=== PATIENT | female | born 1955 | race Caucasian/White ===

== ENCOUNTER 2016-06-04 07:03 | Inpatient (IN) | payer BC ==
--- NOTE | 2016-05-29 19:36 | HP ---
HISTORY AND PHYSICAL: DATE OF ADMISSION: 06/04/16 ATTENDING PHYSICIAN: Tanesha Bonilla MD (dictated by ANAHI Light) CHIEF COMPLAINT: Preop for right total knee arthroplasty. HISTORY OF PRESENT ILLNESS: Ms. Peterson is a 60-year-old female with chronic 5/10 constant aching pain in her right knee. She states that the affected knee is now constantly swollen too. She is having a difficult time getting through the day now and feels that this is impacting her daily life. She is now wishing to proceed with elective total knee arthroplasty of the right. PAST MEDICAL HISTORY: 1. Derangement of posterior horn of the lateral meniscus. 2. Derangement of posterior horn of the medial meniscus. 3. Knee joint effusion. 4. Localized primary osteoarthritis. 5. Acid reflux. PAST SURGICAL HISTORY: None. MEDICATIONS: 1. Tylenol with Codeine 300/30 one to two tablets by mouth every 8 hours as needed. 2. Lysine 500 mg. 3. Caltrate 600 plus D. 4. Advil 200 mg as needed. 5. Gaviscon. 6. Atenolol 25 mg. ALLERGIES: PENICILLIN, DEMEROL, LEVOFLOXACIN, and HYDROCODONE. SOCIAL HISTORY: The patient is not a smoker. The patient drinks alcohol occasionally. The patient does not take any illicit drugs. REVIEW OF SYSTEMS: General: Denies fevers, chills, or night sweats. No known anesthesia problems. HEENT: Denies headache, lightheadedness, or syncopal episodes. Cardiothoracic: Negative for chest pain or edema. She admits to palpitations. Pulmonary: Negative for shortness of breath with exertion, chronic cough, COPD, or asthma. GI: Negative for nausea, vomiting, diarrhea, or constipation. Admits to GERD. : Negative for nocturia, urinary frequency , or urinary urgency. Musculoskeletal: Positive for pain in the right knee and she admits to fusion of the right knee. Negative for chronic or intermittent back pain or fractures. Neuro: Denies paresthesias, numbness, seizures, stroke, epilepsy, or depression. Integument: No abrasions, lesions, rashes, lumps, or open sores. Endocrine: Negative for diabetes or thyroid issues. Hematology: Negative for easy bruising, anemia, or excessive bleeding. PHYSICAL EXAMINATION GENERAL: The patient is alert, awake, and oriented and in no acute distress. HEENT: Normocephalic, atraumatic. Hearing and vision are grossly intact. PULMONARY: Lungs are clear to auscultation bilaterally with no wheezes, rales, or rhonchi. CARDIO: Regular rate and rhythm with S1, S2. No appreciable S3 or S4. No murmurs, rubs, or gallops. GI: Positive bowel sounds in all 4 quadrants with no tenderness to palpation of any of the 4 quadrants. MUSCULOSKELETAL: Right lower extremity: The patient's skin is intact. There is a moderate effusion of the knee, 5 to 120 degrees of flexion with some pain. The patient has no varus or valgus instability. The patient is neurovascularly intact distally with 5/5 strength for dorsiflexion and plantar flexion. The patient has 2+ dorsalis pedis and posterior tibialis pulses. IMPRESSION: Preop for right total knee arthroplasty. PLAN: The patient is to return 10 to 14 days postoperatively for suture removal and followup. A prescription for Tylenol No. 3 with Codeine has been sent to their pharmacy of record to be used for postoperative pain management. A prescription for Coumadin for postop DVT prophylaxis was e-prescribed and Colace was e- prescribed to use as needed for constipation. The patient has been found to be medically clear by Cardiology and her primary care. The risks and benefits of surgery were discussed with the patient today and consent was obtained. ANAHI LIGHT [id number]/[facility] #: [id number] EMILY
[~2016-06-04 07:03] MED LIST: Buffered Lidocaine 1% SYR 3ML* 3 ML/SYR SYRINGE INTRADERM ONE; Dexamethasone IV* 4 MG/ML 1 ML (4 MG) IV SLOW PU ONE; Famotidine IV* 10 MG/ML 2 ML (20 mg) IV ONE
[2016-06-04] MEDS ORDERED: Famotidine IV* 10 MG/ML 2 ML (20 mg) ONE (07:17)
[2016-06-04] MEDS ORDERED: ceFAZolin 2 GM PREMIX (*) 0 GM/0 ML BAG IVPB ONE (07:17)
[2016-06-04] MEDS ORDERED: Dexamethasone IV* 4 MG/ML 1 ML (4 MG) ONE (07:17)
[2016-06-04] MEDS ORDERED: Clindamycin 900 MG IVPREMIX(* 900 MG/50 ML SDV IV ONE (07:17)
[2016-06-04] MEDS ORDERED: Buffered Lidocaine 1% SYR 3ML* 3 ML/SYR SYRINGE ONE (07:20)
[2016-06-04] MEDS ORDERED: Bupivacaine 0.25% EPI 200,000* 30 ML SDV ONE (08:24)
[2016-06-04] MEDS ORDERED: Bupivacaine 0.5% W/EPI SDV* 30 ML VIAL ONE (08:26)
[2016-06-04] MEDS ORDERED: Midazolam* 1 MG/ML 2 ML VIAL (2 MG) ONE (08:57)
[2016-06-04] MEDS ORDERED: KETAMINE HCL* 50 MG/ML 10 ML VIAL ONE (08:57)
[2016-06-04] MEDS ORDERED: Lidocaine 1% INJ* 10 MG/ML 30 ML SDV ONE (09:03)
[2016-06-04] MEDS ORDERED: Propofol* 500 MG/50 ML BTL ONE (09:38)
[2016-06-04] MEDS ORDERED: EPHEDrine (Pressors)* 50 MG/ML VIAL ONE (10:12)
[2016-06-04] MEDS ORDERED: HYDROmorphone INJ* 1 MG/ML CARPUJECT SYRINGE ONE ×3 (10:31→12:15)
[2016-06-04] MEDS ORDERED: Ketorolac INJ* 30 MG/ML 1 ML VIAL ONE (10:46)
[2016-06-04] MEDS ORDERED: Ondansetron INJ* 2 MG/ML VIAL ONE (10:46)
[2016-06-04] MEDS ORDERED: DiMENhydriNATE IV* 50 MG/ML VIAL IV PUSH PRN (10:50)
[2016-06-04] MEDS ORDERED: HYDROmorphone INJ* 1 MG/ML CARPUJECT SYRINGE IV PRN ×2 (10:50→10:57)
[2016-06-04] MEDS ORDERED: Propofol* 10 MG/ML 20 ML BTL IV PUSH ONE (11:15)
[2016-06-04] MEDS ORDERED: fentaNYL* 50 MCG/ML 2 ML VIAL (100 MCG VIAL) ONE (12:15)
[2016-06-04] MEDS: fentaNYL* 50 MCG/ML 2 ML VIAL (100 MCG VIAL) IV PRN ×2 (12:23→12:48)
[2016-06-04] MEDS ORDERED: Magnesium Hydroxide LIQ* 30 ML UDC PO PRN (12:28)
[2016-06-04] MEDS ORDERED: Polyethylene Glycol 3350* 17 GM PACKET PO PRN (12:28)
[2016-06-04] MEDS ORDERED: Morphine INJ* 2 MG/ML 1 ML CARPUJECT IV PRN (12:28)
[2016-06-04] MEDS ORDERED: Ondansetron INJ* 2 MG/ML VIAL IV PRN (12:28)
[2016-06-04] MEDS ORDERED: Acetaminophen TAB* 325 MG PO PRN (12:28)
[2016-06-04] MEDS ORDERED: Bisacodyl SUPP* 10 MG SUPP PR PRN (12:28)
[2016-06-04] MEDS ORDERED: Ondansetron TAB* 4 MG PO PRN (12:28)
--- NOTE | 2016-06-04 13:19 | RAD ---
INDICATION: Total right knee replacement surgery. TECHNIQUE: 2 views of the right knee were obtained. FINDINGS: The patient is status post total right knee replacement surgery. The bones and prostheses are in normal alignment. There is a surgical drain present anterior. IMPRESSION: STATUS POST TOTAL RIGHT KNEE REPLACEMENT SURGERY.
[2016-06-04] MEDS ORDERED: oxyCODONE/Acetamin 5/325 MG* TAB ONE (13:42)
[2016-06-04] MEDS: oxyCODONE/Acetamin 5/325 MG* TAB PO PRN ×3 (13:44→21:20)
[2016-06-04] MEDS: Enoxaparin(*) 30 MG/0.3 ML SYR SUBCUT SCH (14:59)
[2016-06-04] MEDS: Clindamycin 600 MG IVPREMIX(* 600 MG/50 ML SDV IV SCH ×2 (15:48→21:28)
[2016-06-04] MEDS ORDERED: Warfarin TAB(*) 6 MG PO ONE (17:00)
[2016-06-04] MEDS: oxyCODONE TAB* 5 MG TAB PO PRN (19:16)
[2016-06-04] MEDS: diPHENhydraMINE IV* 50 MG/ML 1 ml VIAL (BENADRYL) IV PRN (19:17)
[2016-06-04] MEDS: Docusate CAP* 100 MG PO SCH (20:26)
[2016-06-05] MEDS: oxyCODONE TAB* 5 MG TAB PO PRN ×2 (00:10→11:08)
[2016-06-05] MEDS: oxyCODONE/Acetamin 5/325 MG* TAB PO PRN ×4 (03:24→20:23)
[2016-06-05] MEDS: diPHENhydraMINE IV* 50 MG/ML 1 ml VIAL (BENADRYL) IV PRN (03:30)
[2016-06-05] MEDS: Clindamycin 600 MG IVPREMIX(* 600 MG/50 ML SDV IV SCH ×2 (03:41→09:27)
[2016-06-05 06:31] LABS: Hematocrit 28 % (35-47); Hemoglobin 8.8 g/dl (12.0-16.0)
[2016-06-05 06:39] LABS: Comments Flag Yes
[2016-06-05 06:54] LABS: BUN/Creatinine Ratio 18.2 (8-20); Calcium 8.4 mg/dL (8.6-10.3); EGFR African American 73.3 (>60); Potassium 4.2 mmol/L (3.5-5.0)
--- NOTE | 2016-06-05 07:49 | PN ---
Progress Note - Progress Note SOAP: Subjective: Pt. reports pain is controlled. Main complaint overnight is vaginal itching resembling a yeast infection. Objective: RLE - drain removed, tip intact, 300 cc ss drainage. distally nvi with +df/pf, full sens lt, 2+ dp pulse. dressing c/d/i. Vital Signs: Temp Pulse Resp BP Pulse Ox 97.9 F 70 18 119/55 94 06/05/16 07:31 06/05/16 07:31 06/05/16 07:43 06/05/16 07:31 06/05/16 07:31 Laboratory Results - last 24 hr 06/05/16 06/05/16 06/05/16 06:13 06:13 06:13 Hgb 8.8 L Hct 28 L INR (Anticoag Therapy) 1.35 H Sodium 136 Potassium 4.2 Chloride 105 Carbon Dioxide 27 Anion Gap 4 BUN 18 Creatinine 0.99 H Est GFR ( Amer) 73.3 Est GFR (Non-Af Amer) 57.0 BUN/Creatinine Ratio 18.2 Glucose 106 H Calcium 8.4 L Assessment: 61 yo F pod 1 s/p RTKA Plan: vaginal itching - will get medicine consult and give diflucan now wbat rle - pt/ot mijares d/c now. 6 mg coumadin tonight with lovenox bridge.
[2016-06-05] MEDS ORDERED: Fluconazole 100 MG TAB* TAB PO ONE (08:00)
[2016-06-05] MEDS: Docusate CAP* 100 MG PO SCH ×2 (09:25→20:23)
[2016-06-05] MEDS: Vitamin THERAPEUTIC TAB PO SCH (09:25)
[2016-06-05] MEDS: Atenolol TAB* 25 MG PO SCH (09:59)
--- NOTE | 2016-06-05 10:03 | OP ---
OPERATIVE NOTE: DATE OF OPERATION: 06/04/16 DATE OF : 55 ATTENDING SURGEON: Tanesha Bonilla MD APRON CLEANER: ANAHI Loving ANESTHESIOLOGIST: Dr. Hernandez ANESTHESIA: General. PRE-OP DIAGNOSIS: Severe degenerative osteoarthritis of the right knee joint. POST-OP DIAGNOSIS: Severe degenerative osteoarthritis of the right knee joint. OPERATIVE PROCEDURE: Right total knee arthroplasty. TOURNIQUET TIME: 43 minutes. COMPLICATIONS: None. EBL: 200 cc. SPECIMEN: Bone and cartilage from the right knee joint sent to pathology. HARDWARE: Hardware for this knee was cemented [employer] total knee hardware with two package s of Simplex bone cement. For the femur, a size 5 right narrow Oxinium femoral component. For the tibia, a size 3 right tibial base plate. For the insert, an 11-mm posterior stabilized articular in sert. For the patella, a 32, 7.5 thickness resurfacing 3-peg all-poly patella. BRIEF HISTORY/INDICATION: Ms. Peterson is a 60-year-old female with years of increasingly severe r ight knee pain. Knee pain became severe despite antiinflammatories, pain medications, intra-articul ar injections, physical therapy, and brace wear. Radiographs and arthroscopy identified severe dege nerative osteoarthritis in the medial and patellofemoral compartments. The patient elected to under go a right total knee arthroplasty due to continued pain and decreased quality of life. Informed co nsent was obtained from the patient. She understood the risks of the procedure included but were no t limited to bleeding, infection, damage to nearby structures, continued pain, need for further surg radha, intraoperative fracture, nerve palsy, hardware failure or loosening, stroke, heart attack, bloo d clot, and . She wished to proceed. INTRAOPERATIVE FINDINGS: Intraoperatively, the patient was noted to have full thickness cartilage l oss along the medial and patellofemoral compartments. She did have noted osteopenia as well. DESCRIPTION OF PROCEDURE: Ms. Peterson was identified in the preanesthesia unit. The right lower e xtremity was marked as the correct operative site. Informed consent was signed and placed in the art. The patient was taken to the operating room and placed under general anesthesia. Nelson cathet er was placed. A tourniquet was placed on the right thigh. Right lower extremity was prepped and d raped in the usual sterile fashion. Preop time-out was made to correctly identify the patient's kal e and site. Appropriate perioperative antibiotics were given within one hour of incision. A 12-cm midline incision was made with a 10-blade and carried down to the extensor mechanism. A new 10-blade was used to make a standard medial parapatellar arthrotomy. The patella was subluxed late rally. Electrocautery was used to subperiosteally elevate soft tissue off the superomedial tibia to the mid sagittal plane. The knee was flexed up. The anterior horn of the lateral meniscus and ACL were sharply released. A drill was used to enter the distal femur. Intramedullary distal femoral cutting guide was pinned into proper position on the distal femur. 9-mm of distal femoral bone was carefully removed with an oscillating saw. External rotation guide was pinned on the distal femur. The femur was sized to a size 5. Size 5 multi-cutting jig was placed on the distal femur. Oscillating saw was used to make the appropriate four chamfer cuts. Any bony fragments were carefully removed. The PCL was completely released. The tibia was subluxed anteriorly. Extramedullary tibial cutting g uide was pinned into proper position on the proximal tibia. Oscillating saw was used to make the ap propriate proximal tibial cut and the bone was carefully removed. The knee was brought out into ful l extension. Spacer block had good fit medially and laterally. There was good ligamentous balancing medially and laterally. Flexion and extension gaps were well balanced. The knee was flexed up. La ashley public records officer was placed both medially and laterally. Any remaining meniscus was carefully removed w ith electrocautery. Any posterior femoral condylar osteophytes were removed using a curette. Tibial tray and drop lottie were placed to once again confirm the satisfactory proximal tibial cut. A size 5 narrow right femoral trial was chosen as the trial implant. This was impacted onto the dista l femur without difficulty. There was good stability and fit. The box for the posterior stabilized implant was prepared using a reamer and box cut osteotome. Trial size 3 tibial tray with a 9-mm in sert trial was placed. The knee was taken through a range of motion and noted to have full extensio n to 130 degrees of flexion with good patellofemoral tracking. The patella was everted. 7-mm of patellar bone and cartilage was carefully removed with an oscillat ing saw. The three peg holes were drilled through the size 32 guide. The patella was sized to a si ze 32. 32 thin, 7.5 thickness trial patella was placed. The knee was taken through range of motion and noted to be stable in all positions. Patellofemoral tracking was satisfactory. All trials wer e carefully removed. The tibia was subluxed anteriorly and sized to a size 3. Proximal tibia was prepared using a keel p unch. All bony cut surfaces were copiously irrigated with sterile saline and dried. Final implants were cemented into place starting with the tibia, followed by the femur, and last the patella. An 11-mm insert trial was placed while the knee was brought out into full extension. The cement was al lowed to fully cure. Tourniquet was turned down at 43 minutes. Insert trial was removed. The capsule was checked for any bleeding or excess cement. Final insert chosen was an 11-mm posterior stabilized size 3-4 all-poly insert. This was locked into position on the tibial tray. Stability of the insert and the tibial tray was checked and rechecked and noted t o be stable. Final range of motion with full extension to 130 degrees of flexion. The knee was copiously irrigated with sterile saline. The extensor mechanism was closed over a medi um Hemovac drain using #1 Vicryls. The rest of the incision was closed in a layered fashion using 0 and 2-0 Vicryls. Skin was closed using running 3-0 nylon suture. Sterile Xeroform, 4x4s, and Webr il were used to cover the incision. Fito wrap and cold pack were placed over this. The patient's ane sthesia was reversed without difficulty. She was taken to the PACU in stable condition. Intended w eightbearing will be weightbearing as tolerated. Intended DVT prophylaxis will be Coumadin with a L ovenox bridge. [id number]/[facility] #: [id number]
--- NOTE | 2016-06-05 10:29 | CONS ---
CONSULTATION REPORT: DATE OF CONSULT: 06/04/16 PRIMARY CARE PROVIDER: "Dr. Neetu Zurita". REQUESTING PROVIDER: Tanesha Bonilla MD CONSULTING PROVIDER: ANAHI Gallagher SUPERVISING PHYSICIAN: Romeo Hudson MD CHIEF COMPLAINT: Vaginal itching, status post right total knee arthroplasty. HISTORY OF PRESENT ILLNESS: This is a very pleasant 61-year-old female with a history of GERD who underwent an elective total knee arthroplasty with Dr. Bonilla yesterday, 06/04/16. The patient was complaining of vaginal itching since last night. She is unsure if she has had any associated vaginal discharge given the circumstances of her surgery. Nelson catheter was removed this removed this morning and an empiric dose of fluconazole was prescribed by Orthopedic Surgery. The patient reports that she is prone to vaginal yeast infections with prior antibiotic administration. She is currently receiving clindamycin prophylactically to reduce the risk of perioperative infection. The patient has no history of diabetes. She denies any other associated rash. She denies any other postoperative complaints and reports that she is overall doing quite well. Her first physical therapy session is scheduled for later this morning. PAST MEDICAL HISTORY: 1. GERD. 2. Hypertension. HOME MEDICATIONS: 1. Atenolol 25 mg p.o. daily. 2. Gaviscon 1 tablet p.o. every 6 hours as needed. 3. Multivitamin 1 tablet p.o. daily. HOSPITAL MEDICATIONS: 1. Acetaminophen 650 mg p.o. q.4 hours p.r.n. pain. 2. Atenolol 25 mg p.o. daily. 3. Clindamycin 600 mg q.6 hours. 4. Lovenox 30 mg subcu every 24 hours. 5. Fluconazole 150 mg p.o. x1. 6. Lactated Ringer's 100 mL per hour. 7. Morphine 2 mg IV q.2 hours as needed for pain. 8. Zofran 4 mg IV q.6 hours p.r.n. nausea. 9. Coumadin 6 mg p.o. daily. 10. Oxycodone 10 mg q.4 hours p.r.n. pain. SOCIAL HISTORY: The patient has no history of smoking. Lives at home with her . Drinks alcohol occasionally. PHYSICAL EXAM: Vital signs: Temperature 97.9 degrees Fahrenheit, pulse 70 beats per minute, respiratory rate 16 per minute, oxygen saturation 84% on room air, and blood pressure 119/55 mmHg. Limited exam: Abdomen: Abdomen is soft and nontender to palpation. External genitalia: Free of any rashes or lesions, no obvious discharge appreciated from the vagina, and speculum exam is deferred at this time. Skin: No abnormal rashes or lesions appreciated. LABORATORY EVALUATION: Postoperative hemoglobin and hematocrit is 8.8 and 28 respectively. INR is 1.35. Basic metabolic panel is unremarkable with a sodium of 136, potassium 4.2, BUN of 18, creatinine 0.99, and glucose of 106. HOSPITAL IMAGING: None. ASSESSMENT AND PLAN: This is a 61-year-old female with a history of GERD and hypertension who is day 1 postop, status post right total knee arthroplasty. Hospitalist group has been consulted in regards to complaint of vaginal itching. 1. Status post right total knee arthroplasty by Dr. Bonilla on 06/04/16: The patient is currently postop day #1. Management per Orthopedic Surgery Group. 2. Vaginal itching: Suspect vaginal candidiasis - the patient does not have any evidence of cutaneous yeast infection and she does tend to be prone to vaginal candidiasis with antibiotic administration. The patient has been ordered a dose of Diflucan 150 mg x1 which is appropriate for treatment of vaginal candidiasis. Looks like she is still receiving clindamycin at this time and her symptoms maybe persisted as long as she is still taking antibiotics. Could repeat that 150 mg dose up to 2 additional occasions if she continues to be symptomatic. If she is not responsive to that therapy, then a speculum exam would be advised. 3. Postoperative anemia: Management per Surgery. 4. DVT prophylaxis: Lovenox and Coumadin per orthopedic surgery. 5. Code status: Full code. 6. Health care proxy: Her . DISPOSITION: Agree with Diflucan as ordered by Orthopedic Surgery. Again if the patient is still symptomatic tomorrow, may repeat this dose for up to 2 additional days. If she is still symptomatic at that time, can reevaluate and perform a full speculum exam. Hospitalist Group will not continue to follow this patient, but are happy to reevaluate if her symptoms are persistent. ANAHI GALLAGHER [id number]/[facility] #: [id number] MTDD
[2016-06-05] MEDS: Enoxaparin(*) 30 MG/0.3 ML SYR SUBCUT SCH (13:15)
[2016-06-05] MEDS ORDERED: Warfarin TAB(*) 6 MG PO SCH (17:00)
--- NOTE | 2016-06-05 17:08 | RAD ---
INDICATION: Postoperative desaturation COMPARISON: Chest x-ray dated June 03, 2016 TECHNIQUE: PA and lateral views of the chest were obtained. FINDINGS: The heart and mediastinum are normal in size and contour. The lungs are grossly clear. There is no evidence of large pleural effusion. Visualized bones are normal for the patient's age. There is no radiographic evidence of free air beneath the diaphragm IMPRESSION: No radiographic evidence of acute cardiopulmonary disease.
--- NOTE | 2016-06-05 18:15 | PN ---
Hospitalist Progress Note Patient was noted to be hypoxic this afternoon. Dr Bonilla was notified. There was concern of a possible PE. Patient denied dyspnea or chest pain. No has no history of prior clots. Patient has significant concerns about her radiation load with a CT to evaluate for PE. Re-evaulated patient at ~1800, she was able to maintain O2 sats between 92-95% on RA. Vital Signs: Temp Pulse Resp BP Pulse Ox 98.3 F 70 20 97/40 92 06/05/16 15:18 06/05/16 15:40 06/05/16 15:18 06/05/16 15:18 06/05/16 16:00 Exam: Gen: Patient is lethargic, but becomes more alert during interview CV: RRR, no m/r/g Resp: Lungs clear, no w/c/r CXR - NAD Assessment: 1. Hypoxia - CXR neg for atelectasis and lungs clear. Consider PE but unlikely with this presentation, but she is asymptomatic and not tachycardic. Possibly due to opiate medications. O2 sat this evening was improved. D-dimer is not helpful in this case being immediately post-op. Discussed case with Dr Bonilla who is ok to wait on CT imaging and continue monitoring vitals overnight. If patient is persistently hypoxic, would recommend CTA of the chest in the am.
[2016-06-06] MEDS: oxyCODONE/Acetamin 5/325 MG* TAB PO PRN ×5 (00:43→21:03)
[2016-06-06] MEDS: oxyCODONE TAB* 5 MG TAB PO PRN (04:24)
[2016-06-06 06:35] LABS: Hematocrit 25 % (35-47); Hemoglobin 8.1 g/dl (12.0-16.0); Mean Platelet Volume 9 um3 (7.4-10.4)
[2016-06-06 06:41] LABS: Comments Flag Yes
--- NOTE | 2016-06-06 08:12 | PN ---
Progress Note - Progress Note SOAP: Subjective: [Pt was seen while laying in bed this morning. Pt reports that she is having some pain in her knee currently but has not had any pain meds this morning. She states that she usually has some trouble with narcotics and stated that she may do better on Tylenol 3. ] Objective: [General: Pt is alert, awake and oriented. MSK: RLE: distally nvi. Pt is able to dorsiflex and planter flex, able to wiggle toes. full sensation to light touch. 2+ dp and pt pulse. dressing c/d/ i. ] Vital Signs Temp 98.5 F 06/06/16 07:50 Pulse 87 06/06/16 07:50 Resp 16 06/06/16 07:50 BP 133/54 06/06/16 07:50 Pulse Ox 93 06/06/16 07:52 Intake & Output 06/05/16 06/06/16 06/06/16 18:59 06:59 18:59 Intake Total 1645 600 Output Total 900 1200 Balance 745 -600 Intake: IV Fluids 980 LR 980 IVPB 105 clindamycin 105 Oral 560 600 Output: Urine 450 1200 Nelson 450 Assessment: [S/P RTKA] Plan: [Due to Pulse Ox being 93 on room air a CTA chest was ordered to R/O pulmonary embolism. CT was found to be negative Will continue PT/OT Will continue current anticoagulation treatment Pain regimen will continue/ zofran given for nausea that she was associating with pain meds Pts dressing was changed today ]
[2016-06-06] MEDS: Iodixanol* (CONTRAST) 320 MG/ML 100 ML SDV IV ONE ×2 (09:41→09:53)
[2016-06-06] MEDS: Atenolol TAB* 25 MG PO SCH (10:14)
[2016-06-06] MEDS: Vitamin THERAPEUTIC TAB PO SCH (10:14)
[2016-06-06] MEDS: Docusate CAP* 100 MG PO SCH ×2 (10:14→20:17)
--- NOTE | 2016-06-06 10:27 | RAD ---
INDICATION: Hypoxia, evaluate for pulmonary embolism. COMPARISON: Comparison is made with a prior chest x-ray study from June 05, 2016. TECHNIQUE: A CT angiogram of the chest was performed with intravenous following intravenous injection of 72 ml of Visipaque 320 nonionic contrast. Contiguous axial sections were obtained from the lung apices through the lung bases. Images were reconstructed in the coronal and sagittal planes. FINDINGS: There is streak artifact from dense contrast within the superior vena cava limiting the exam slightly. No pulmonary arterial intraluminal filling defect or pulmonary embolism is seen. The heart is mildly enlarged. There is a small pericardial effusion present. The thoracic aorta is normal in caliber and demonstrates homogeneous contrast opacification. No significant enlarged mediastinal or hilar lymph nodes are seen. There are mild dependent bilateral lower lobe infiltrates most consistent with subsegmental atelectasis. There are trace bilateral pleural effusions. No significant focal osseous abnormality is seen. IMPRESSION: 1. SLIGHTLY LIMITED EXAM, NO EVIDENCE FOR PULMONARY EMBOLISM. 2. SMALL PERICARDIAL EFFUSION. 3. TRACE BILATERAL PLEURAL EFFUSIONS.
--- NOTE | 2016-06-06 14:24 | PN ---
Subjective Date of Service: 06/06/16 Interval History: Pt reports she feels better today. vaginal itching better. no SOB or CP. Denies dizziness. Reports pain in knee but reports it is controlled well with on pain regimen. reports good appetite. No fever or chills. Objective Active Medications: Acetaminophen (Tylenol Tab*) 650 mg PO Q4H PRN PRN Reason: PAIN OR TEMPERATURE Atenolol (Tenormin Tab*) 25 mg PO QAM [facility] Last Admin: 06/06/16 10:14 Dose: Not Given Bisacodyl (Dulcolax Supp*) 10 mg VA DAILY PRN PRN Reason: constipation Diphenhydramine HCl (Benadryl Iv*) 12.5 mg IV Q6H PRN PRN Reason: PRURITIS Last Admin: 06/05/16 03:30 Dose: 12.5 mg Docusate Sodium (Colace Cap*) 100 mg PO BID [facility] Last Admin: 06/06/16 10:14 Dose: Not Given Lactated Ringer's (Lactated Ringers 1000 Ml Bag*) 1,000 mls @ 100 mls/hr IV PER RATE [facility] Last Admin: 06/05/16 00:12 Dose: 100 mls/hr Lactulose (Lactulose*) 30 ml PO Q6H PRN PRN Reason: constipation Magnesium Hydroxide (Milk Of Magnesia Liq*) 30 ml PO Q6H PRN PRN Reason: constipation Last Admin: 06/06/16 04:26 Dose: 30 ml Morphine Sulfate (Morphine Inj (Syringe)*) 2 mg IV Q2H PRN PRN Reason: PAIN Multivitamins (Theragran Tab*) 1 tab PO DAILY [facility] Last Admin: 06/06/16 10:14 Dose: Not Given Ondansetron HCl (Zofran Inj*) 4 mg IV Q6H PRN PRN Reason: nausea Last Admin: 06/06/16 08:36 Dose: 4 mg Ondansetron HCl (Zofran Tab*) 4 mg PO Q6H PRN PRN Reason: NAUSEA Oxycodone HCl (Roxycodone Tab*) 10 mg PO Q4H PRN PRN Reason: SEVERE PAIN Last Admin: 06/06/16 04:24 Dose: 10 mg Oxycodone/Acetaminophen (Percocet 5/325 Tab*) 1 tab PO Q3H PRN PRN Reason: PAIN - MODERATE Last Admin: 06/04/16 21:20 Dose: 1 tab Oxycodone/Acetaminophen (Percocet 5/325 Tab*) 2 tab PO Q3H PRN PRN Reason: PAIN - MODERATE Last Admin: 06/06/16 13:07 Dose: 2 tab Polyethylene Glycol/Electrolytes (Miralax*) 17 gm PO DAILY PRN PRN Reason: Constipation Vital Signs 06/06/16 06/06/16 06/06/16 07:52 08:00 09:04 Temperature Pulse Rate Respiratory 18 18 Rate Blood Pressure (mmHg) O2 Sat by Pulse 93 93 Oximetry 06/06/16 06/06/16 06/06/16 10:05 10:15 11:04 Temperature Pulse Rate 79 Respiratory 16 Rate Blood Pressure 128/52 (mmHg) O2 Sat by Pulse 93 82 Oximetry 06/06/16 06/06/16 11:43 13:07 Temperature 98.6 F Pulse Rate 75 Respiratory 16 18 Rate Blood Pressure 116/59 (mmHg) O2 Sat by Pulse 95 Oximetry Oxygen Devices in Use Now: Nasal Cannula Appearance: 61 yo healthy appearing female laying in bed A+O x3 in NAD Eyes: No Scleral Icterus, PERRLA Ears/Nose/Mouth/Throat: NL Teeth, Lips, Gums, Mucous Membranes Moist Neck: NL Appearance and Movements; NL JVP Respiratory: Symmetrical Chest Expansion and Respiratory Effort, Clear to Auscultation Cardiovascular: NL Sounds; No Murmurs; No JVD, RRR, No Edema Abdominal: NL Sounds; No Tenderness; No Distention Extremities: - - knee with clean dressing/manuel wrap with cryo unit in place. good proximal and distal sensation. no edema noted. Neurological: Alert and Oriented x 3, NL Sensation, NL Muscle Strength and Tone Lines/Tubes/Other Access: Clean, Dry and Intact Peripheral IV Nutrition: Taking PO's Result Diagrams: 06/06/16 06:14 06/05/16 06:13 Assess/Plan/Problems-Billing Assessment: Mrs. Peterson is a 61 yo female with a PMH of Gerd, HTN who underwent an elective RTK arthroplasty on 06/04/[address] Bonilla - Patient Problems (1) s/p right total knee arthoplasty Comment: POD #2 Dispo per Ortho team Pt doing well. HH stable. Hgb pre-op 12.9 down to 8.1 today. asymptomatic. continue to monitor. Pain management PT (2) Vaginal itching Comment: resolving. was given Diflucan 150 mg x 1 on 06/05. If worsens will given second dose. (3) Hypoxemia Comment: - On 1 L NC. 93% on RA. Aymptomatic. - CTA showing no PE, small pericardial effusion, trace bilateral effusions and subsegmental atelectasis. Pulmonary tolieting. encouraged IS and ambulation. (4) HTN (hypertension) Comment: controlled. continue atenolol. (5) DVT prophylaxis Comment: INR therapuetic on coumadin Status and Disposition: Per Ortho
[2016-06-07] MEDS: oxyCODONE/Acetamin 5/325 MG* TAB PO PRN ×3 (00:10→08:12)
[2016-06-07 07:36] LABS: Hematocrit 26 % (35-47); Hemoglobin 8.1 g/dl (12.0-16.0)
[2016-06-07 07:40] LABS: Comments Flag Yes
[2016-06-07] MEDS: Vitamin THERAPEUTIC TAB PO SCH (08:11)
[2016-06-07 08:28] VITALS: BP 119/62
[2016-06-07] MEDS: Atenolol TAB* 25 MG PO SCH (08:44)
[2016-06-07] MEDS: Docusate CAP* 100 MG PO SCH (08:44)
--- NOTE | 2016-06-07 09:54 | PN ---
Progress Note - Progress Note SOAP: Subjective: [61 year old female s/p R TKA 06/04/2016. Patient reports feeling well, eager for D/C to home. Denies SOB, chest pain. Working well wtih PT. unable to have VNS or PT at home, but has arrangements for outpatient. No other questions or concerns. ] Objective: [General- Well appearing, NAD, resting in bed comfortably. MSK- Dresssing dry, intact, incision C/D/I, no erythema, drainage noted. Intact to light touch sensation b/l LE's PT 2+ b/l. Shaunna/plantarflexion equal b/l ankles. ] Vital Signs Temp 98.3 F 06/07/16 07:35 Pulse 80 06/07/16 07:35 Resp 18 06/07/16 08:12 BP 119/62 06/07/16 07:35 Pulse Ox 95 06/07/16 07:35 06/06/16 06/06/16 06/07/16 06:14 06:14 07:05 Hgb 8.1 L 8.1 L Hct 25 L 26 L Plt Count 141 L MPV 9 INR (Anticoag Therapy) 2.51 H 06/07/16 07:05 Hgb Hct Plt Count MPV INR (Anticoag Therapy) 3.18 H Assessment: [POD #3 s/p R TKA ] Plan: [- Theraputic INR, d/c lovenox, hold coumadin until friday 2mg. - Continue PT/ OT - FOllow up with Dr. Bonilla in 10-14 days. - Continue pain regimen - Discussed importance of BM every 2 days ]
--- NOTE | 2016-06-10 03:48 | DS ---
DISCHARGE SUMMARY: DATE OF ADMISSION: 06/04/16 DATE OF DISCHARGE: 06/07/16 CHIEF COMPLAINT: 1. Right knee end-stage osteoarthritis. 2. Acid reflux. DISCHARGE DIAGNOSES: 1. Status post right total knee arthroplasty. 2. Acid reflux. PROCEDURE: Status post right total knee arthroplasty. CONSULTATIONS: 1. Physical therapy. 2. Occupational therapy. BRIEF HISTORY: Mrs. Peterson is a very pleasant 61-year-old female with severe end-stage degenerative osteoarthritis of the right knee who failed conservative treatment and elected to undergo a right total knee arthroplasty on 06/04/[address] Tanesha Bonilla. HOSPITAL COURSE: The patient was admitted to [facility] on 06/04/16 , where she underwent a right total knee arthroplasty. Postoperatively, she recovered in the surgical stay unit. On postoperative day #2, her Nelson was removed. She was voiding without difficulty. The patient was having flatus without difficulty and tolerating a regular diet. She was noted on postoperative day #1 to have decreased oxygen saturations, 92% to 95% on room air. A CTA was ordered which showed no evidence of pulmonary embolism and a small pericardial effusion with trace bilateral pulmonary effusions. The patient's oxygenation improved to where she was satting only on room air without any complaints of shortness of breath. She also had one episode of vaginal itching and was diagnosed with vulva vaginitis and given Diflucan. She advanced appropriately with physical therapy and occupational therapy. Her DVT prophylaxis was managed with Lovenox and Coumadin until she reached a therapeutic INR. By postoperative day #3, she was orthopedically and medically stable for discharge to go home with home services. PHYSICAL EXAMINATION: General: Well appearing, in no acute distress. Alert and oriented. Resting in the bed comfortably. Vital Signs: Temp 98.3, pulse 80, respirations 18, oxygen saturation 95%, and blood pressure 119/62. Examination of the right lower extremity demonstrates a surgical incision on the anterior aspect of the knee, which is benign without erythema, drainage or clinical signs of infection and dry dressing was applied and covered with an ROOPA wrap. The patient had equal ankle dorsiflexion and plantar flexion bilaterally. Posterior tibial pulses were 2+ bilaterally with minimal edema in bilateral lower extremities. Sensation to light touch was intact. DISCHARGE MEDICATIONS: 1. Atenolol 25 mg p.o. daily q.a.m. 2. Caltrate 600 mg one tablet daily. 3. Colace 100 mg p.o. b.i.d. 4. Gaviscon chew one tablet q.6 hours p.r.n. 5. Refresh dry eye therapy one drop to bilateral eyes q.4 hours. 6. Lysine 500 mg p.o. daily. 7. Nasonex 50 mcg one spray to both nares daily. 8. Daily multivitamin. 9. Coumadin 2 mg tablets 1 to 3 tablets as directed daily at 5 p.m. 10. Percocet 5/325 one to two tablets as needed every 3 hours p.r.n. pain. LABORATORY DATA: H and H of 8.1 and 26. INR of 3.18. CONDITION ON DISCHARGE: Stable. DISCHARGE INSTRUCTIONS: Mrs. Peterson is a very pleasant 61-year-old female status post right total knee replacement, which was uncomplicated. She is orthopedically and medically stable for discharge home with home services. Her labs and vitals signs remained stable. She was restarted on her home medications. She will hold her Coumadin dosing for the next 2 days, will take 2 mg on Friday and will have an INR recheck on Friday. She was unable to have visiting home nurse for INR draws due to being out of [facility]; however, will go to a local lab shortly. Weight bearing as tolerated on the right lower extremity. She will have outpatient physical therapy. She will take Percocet as needed for pain control and Colace up to 3 times a day to prevent constipation. She will follow up with Dr. Bonilla in approximately 10 to 14 days for incision check and suture removal. She was instructed to go to the ER immediately should she develop chest pain or shortness of breath. She was instructed to call the office should she develop fever, redness, drainage, or increased pain. [place] MTZ [id number]/[facility] #: [id number] MTDSilvina
== END 2016-06-07 11:00 | disposition home or self-care (01) | DRG 302 ==
LOC: AA 07:03 → SSU 13:21
PROVIDERS: ADMIT Orthopaedic Surgery Adult Reconstructive Orthopaedic Surgery; ATTEND Orthopaedic Surgery Adult Reconstructive Orthopaedic Surgery
PROC: 0SRC0J9 Replacement of Right Knee Joint with Synthetic Substitute, Cemented, Open Approach (ICD-10-PCS; principal; 2016-06-04 09:30)
DX: M17.11 Unilateral primary osteoarthritis, right knee (principal); I10 Essential (primary) hypertension; K21.9 Gastro-esophageal reflux disease without esophagitis; G89.29 Other chronic pain; M25.461 Effusion, right knee; R09.02 Hypoxemia; L29.8 Other pruritus; D64.9 Anemia, unspecified; K22.70 Barrett's esophagus without dysplasia; F41.9 Anxiety disorder, unspecified; M85.88 Other specified disorders of bone density and structure, other site; Z88.0 Allergy status to penicillin; Z88.1 Allergy status to other antibiotic agents; Z88.5 Allergy status to narcotic agent; Z88.8 Allergy status to other drugs, medicaments and biological substances; Z72.89 Other problems related to lifestyle
CPT/HCPCS: 36415; 71020; 71275; 80048; 85014; 85018; 85049; 85610; 88305; 88311; 94760; A9270-GY; C1776; J0690; J1100; J1170; J1200; J1650; J1885; J2250; J2405; J2704; J3010; Q9967

== ENCOUNTER 2016-08-01 01:53 | Emergency (ER) | payer BC ==
[2016-08-01] MEDS ORDERED: Ondansetron INJ* 2 MG/ML VIAL IV ONE (02:12)
[2016-08-01] MEDS ORDERED: Ketorolac INJ* 30 MG/ML 1 ML VIAL IV ONE (02:12)
[2016-08-01] MEDS ORDERED: HYDROmorphone INJ* 1 MG/ML CARPUJECT SYRINGE IV ONE (02:12)
[2016-08-01] MEDS ORDERED: NS 0.9% 1000 ML* 2,000 ML IV ONE (02:12)
[2016-08-01 02:37] LABS: Hematocrit 35 % (35-47); Hemoglobin 10.8 g/dl (12.0-16.0); Mean Corpuscular HGB Conc 31 g/dl (31-36); Mean Corpuscular Hemoglobin 20 pg (27-31); Mean Platelet Volume 8 um3 (7.4-10.4); Red Blood Count 5.45 10^6/ul (4.0-5.4); Red Cell Distribution Width 16 % (10.5-15); White Blood Count 10.9 10^3/ul (3.5-10.8)
[2016-08-01 02:45] LABS: Comments Flag Yes
[2016-08-01 02:46] LABS: Mean Corpuscular Volume 65 fL (80-97)
[2016-08-01 02:47] LABS: Albumin 4.1 g/dL (3.2-5.2); BUN/Creatinine Ratio 19.8 (8-20); C Reactive Protein 3.1 mg/L (< 5.00); Calcium 9.2 mg/dL (8.6-10.3); EGFR African American 92.4 (>60); EGFR Non-African American 71.9 (>60); Globulin 3.5 g/dL (2-4); Potassium 3.7 mmol/L (3.5-5.0); Total Bilirubin 0.4 mg/dL (0.2-1.0); Total Protein 7.6 g/dL (6.4-8.9)
[2016-08-01 03:12] LABS: Urine Bacteria Absent (Absent); Urine Bilirubin Negative (Negative); Urine Glucose Negative (Negative); Urine Nitrite Negative (Negative)
[2016-08-01] MEDS ORDERED: Tamsulosin CAP* 0.4 MG PO ONE (03:44)
[2016-08-01] MEDS ORDERED: NS 0.9% 1000 ML* 1,000 ML IV ONE (03:44)
--- NOTE | 2016-08-01 04:44 | ED ---
sergei Mcmillan Timothy, scribed for Tip Bal MD on 08/01/16 at 0213 . Abdominal Pain/Female - HPI Summary HPI Summary: Brittany Peterson is a 61 yo female presenting to [facility] with 9/10 intermittent left flank and left sided abd pain pain since 2129 last night, subsiding at 1230 , and then getting worse. Per triage, Pt is actively vomiting and writhing in pain. She states there is a lot of pressure on her left side, almost like she has to use the bathroom. She is nauseous in room. She denies CP and SOB. She self-medicated with advil 400mg at 2300 last night. Her MHx includes thyroid nodule, rheumatic fever, murmur, hital hernia, GERD, diverticulosis, hysterectomy, cholecystectomy. - History of Current Complaint Stated Complaint: LT SIDE FLANK PAIN Time Seen by Provider: 08/01/16 02:08 Hx Obtained From: Patient Hx Last Menstrual Period: Hyst. ?: No Onset/Duration: Sudden Onset Timing: Constant Severity Initially: Moderate Severity Currently: Moderate Pain Intensity: 9 Pain Scale Used: 0-10 Numeric Location: Discrete At: LUQ, Discrete At: LLQ Radiates: Yes Radiates to: Flank - left Aggravating Factor(s): Nothing Associated Signs and Symptoms: Positive: Nausea Allergies/Adverse Reactions: Allergies Allergy/AdvReac Type Severity Reaction Status Date / Time Hydrocodone [From Vicodin] Allergy Intermediate Hives Verified 06/04/16 07:28 Levofloxacin Allergy Intermediate PALPATATION Verified 06/04/16 07:28 S Meperidine [From Demerol HCl] Allergy Intermediate Hives Verified 06/04/16 07:28 Penicillins Allergy Intermediate Hives Verified 06/04/16 07:28 Dicyclomine [From Bentyl] Allergy See Comment Verified 06/04/16 14:11 BENZYL Allergy Unknown Uncoded 06/04/16 07:28 Reaction Details PMH/Surg Hx/FS Hx/Imm Hx Endocrine/Hematology History: Reports: Hx Thyroid Disease - NODULE Denies: Hx Anticoagulant Therapy, Hx Diabetes Cardiovascular History: Reports: Hx Rheumatic Fever - HX OF, Other Cardiovascular Problems/Disorders - HEART MURMUR (RHEUMATIC FEVER) Denies: Hx Congestive Heart Failure, Hx Deep Vein Thrombosis, Hx Hypertension , Hx Myocardial Infarction, Hx Pacemaker/ICD Respiratory History: Denies: Hx Asthma, Hx Chronic Obstructive Pulmonary Disease (COPD), Hx Lung Cancer, Hx Pneumonia, Hx Pulmonary Embolism, Other Respiratory Problems/ Disorders GI History: Reports: Hx Gastroesophageal Reflux Disease - HX OF AND ON MEDICATION FOR, Hx Hiatal Hernia - HAD A PROCEDURE FOR Denies: Hx Gall Bladder Disease, Hx Gastrointestinal Bleed, Hx Ulcer, Hx Urosepsis Comment Only: Other GI Disorders - mariela wrap/hiatal hernia History: Reports: Other Problems/Disorders - DIVERTICULOSIS Denies: Hx Kidney Stones, Hx Renal Disease Musculoskeletal History: Reports: Hx Arthritis - FINGERS, KNEES, 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 Denies: Hx Osteoporosis Sensory History: Reports: Hx Cataracts - JOSE, Hx Glaucoma - BILATERAL Denies: Hx Contacts or Glasses, Hx Hearing Aid Opthamlomology History: Reports: Hx Cataracts - JOSE, Hx Glaucoma - BILATERAL Denies: Hx Contacts or Glasses Neurological History: Reports: Other Neuro Impairments/Disorders - 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 06/23/12, 07/14/12 JOSE CATARACTS, [facility];. GALLBLADDER 1989, [facility];. HYSTERECTOMY 1985, [facility];. TUBAL LIGATION 1981, [facility];. MECCALS DIVERTICULUM, [place](AGE 12). BONE SPUR LEFT FOOT, [facility];. 2006 RIGHT KNEE ARTHROSCOPY, [facility]. BONE SPUR RIGHT FOOT REMOVED-06/2014-[facility] [place] Hx Anesthesia Reactions: No Infectious Disease History: No Infectious Disease History: Denies: Traveled Outside the [place] in Last 30 Days - Family History Known Family History: Positive: Other - breast CA Negative: Cardiac Disease, Hypertension, Diabetes - Social History Alcohol Use: None Substance Use Type: Reports: None Hx Tobacco Use: No Smoking Status (MU): Former Smoker Have You Smoked in the Last Year: No Review of Systems Constitutional: Negative Eyes: Negative ENT: Negative Cardiovascular: Negative Respiratory: Negative Positive: Abdominal Pain - left sided, Nausea Positive: flank pain - left Musculoskeletal: Negative Skin: Negative Neurological: Negative Psychological: Normal All Other Systems Reviewed And Are Negative: Yes Physical Exam Triage Information Reviewed: Yes Vital Signs On Initial Exam: Initial Vitals Temp Pulse Resp BP Pulse Ox 99.8 F 79 18 170/66 99 08/01/16 02:01 08/01/16 02:01 08/01/16 02:01 08/01/16 02:01 08/01/16 02:01 Vital Signs Reviewed: Yes Appearance: Positive: Well-Appearing, Pain Distress Skin: Positive: Warm, Skin Color Reflects Adequate Perfusion, Dry Head/Face: Positive: Normal Head/Face Inspection Eyes: Positive: EOMI, JUAN C ENT: Positive: Normal ENT inspection Neck: Positive: Supple, Nontender Respiratory/Lung Sounds: Positive: Clear to Auscultation, Breath Sounds Present Cardiovascular: Positive: RRR Abdomen Description: Positive: Soft, CVA Tenderness (L). Negative: Nontender Bowel Sounds: Positive: Present Musculoskeletal: Positive: Normal, Strength/ROM Intact Neurological: Positive: Normal, Sensory/Motor Intact, Alert, Oriented to Person Place, Time Psychiatric: Positive: Affect/Mood Appropriate Diagnostics - Vital Signs Vital Signs Temp Pulse Resp BP Pulse Ox 08/01/16 02:01 99.8 F 79 18 170/66 99 - Laboratory Lab Results: Lab Results 08/01/16 08/01/16 08/01/16 Range/Units 02:14 02:14 02:14 WBC 10.9 H (3.5-10.8) 10^3/ul RBC 5.45 H (4.0-5.4) 10^6/ul Hgb 10.8 L (12.0-16.0) g/dl Hct 35 (35-47) % MCV 65 L (80-97) fL MCH 20 L (27-31) pg MCHC 31 (31-36) g/dl RDW 16 H (10.5-15) % Plt Count 238 (150-450) 10^3/ul MPV 8 (7.4-10.4) um3 Neut % (Auto) 76.3 (38-83) % Lymph % (Auto) 17.4 L (25-47) % Refugio % (Auto) 5.8 (1-9) % Eos % (Auto) 0.1 (0-6) % Baso % (Auto) 0.4 (0-2) % Absolute Neuts (auto) 8.3 H (1.5-7.7) 10^3/ul Absolute Lymphs (auto) 1.9 (1.0-4.8) 10^3/ul Absolute Monos (auto) 0.6 (0-0.8) 10^3/ul Absolute Eos (auto) 0 (0-0.6) 10^3/ul Absolute Basos (auto) 0 (0-0.2) 10^3/ul Absolute Nucleated RBC 0 10^3/ul Nucleated RBC % 0 INR (Anticoag Therapy) 1.08 (0.89-1.11) APTT 28.8 (26.0-36.3) seconds Sodium 136 (133-145) mmol/L Potassium 3.7 (3.5-5.0) mmol/L Chloride 108 (101-111) mmol/L Carbon Dioxide 20 L (22-32) mmol/L Anion Gap 8 (2-11) mmol/L BUN 16 (6-24) mg/dL Creatinine 0.81 (0.51-0.95) mg/dL Est GFR ( Amer) 92.4 (>60) Est GFR (Non-Af Amer) 71.9 (>60) BUN/Creatinine Ratio 19.8 (8-20) Glucose 136 H (70-100) mg/dL Lactic Acid (0.5-2.0) mmol/L Calcium 9.2 (8.6-10.3) mg/dL Total Bilirubin 0.40 (0.2-1.0) mg/dL AST 18 (13-39) U/L ALT 14 (7-52) U/L Alkaline Phosphatase 90 (34-104) U/L C-Reactive Protein 3.10 (< 5.00) mg/L Total Protein 7.6 (6.4-8.9) g/dL Albumin 4.1 (3.2-5.2) g/dL Globulin 3.5 (2-4) g/dL Albumin/Globulin Ratio 1.2 (1-3) Lipase 49 (11.0-82.0) U/L Urine Color Urine Appearance Urine pH (5-9) Ur Specific Mullins (1.010-1.030) Urine Protein (Negative) Urine Ketones (Negative) Urine Blood (Negative) Urine Nitrate (Negative) Urine Bilirubin (Negative) Urine Urobilinogen (Negative) Ur Leukocyte Esterase (Negative) Urine WBC (Auto) (Absent) Urine RBC (Auto) (Absent) Ur Squamous Epith Cells (Absent) Urine Bacteria (Absent) Hyaline Casts (Absent) Urine Glucose (Negative) 08/01/16 08/01/16 Range/Units 02:14 02:52 WBC (3.5-10.8) 10^3/ul RBC (4.0-5.4) 10^6/ul Hgb (12.0-16.0) g/dl Hct (35-47) % MCV (80-97) fL MCH (27-31) pg MCHC (31-36) g/dl RDW (10.5-15) % Plt Count (150-450) 10^3/ul MPV (7.4-10.4) um3 Neut % (Auto) (38-83) % Lymph % (Auto) (25-47) % Refugio % (Auto) (1-9) % Eos % (Auto) (0-6) % Baso % (Auto) (0-2) % Absolute Neuts (auto) (1.5-7.7) 10^3/ul Absolute Lymphs (auto) (1.0-4.8) 10^3/ul Absolute Monos (auto) (0-0.8) 10^3/ul Absolute Eos (auto) (0-0.6) 10^3/ul Absolute Basos (auto) (0-0.2) 10^3/ul Absolute Nucleated RBC 10^3/ul Nucleated RBC % INR (Anticoag Therapy) (0.89-1.11) APTT (26.0-36.3) seconds Sodium (133-145) mmol/L Potassium (3.5-5.0) mmol/L Chloride (101-111) mmol/L Carbon Dioxide (22-32) mmol/L Anion Gap (2-11) mmol/L BUN (6-24) mg/dL Creatinine (0.51-0.95) mg/dL Est GFR ( Amer) (>60) Est GFR (Non-Af Amer) (>60) BUN/Creatinine Ratio (8-20) Glucose (70-100) mg/dL Lactic Acid 2.2 H* (0.5-2.0) mmol/L Calcium (8.6-10.3) mg/dL Total Bilirubin (0.2-1.0) mg/dL AST (13-39) U/L ALT (7-52) U/L Alkaline Phosphatase (34-104) U/L C-Reactive Protein (< 5.00) mg/L Total Protein (6.4-8.9) g/dL Albumin (3.2-5.2) g/dL Globulin (2-4) g/dL Albumin/Globulin Ratio (1-3) Lipase (11.0-82.0) U/L Urine Color Yellow Urine Appearance Cloudy Urine pH 5.0 (5-9) Ur Specific Mullins 1.024 (1.010-1.030) Urine Protein 1+(30 mg/dl) H (Negative) Urine Ketones 1+ H (Negative) Urine Blood 3+ H (Negative) Urine Nitrate Negative (Negative) Urine Bilirubin Negative (Negative) Urine Urobilinogen Negative (Negative) Ur Leukocyte Esterase Trace H (Negative) Urine WBC (Auto) Trace(0-5/hpf) (Absent) Urine RBC (Auto) 3+(>10/hpf) H (Absent) Ur Squamous Epith Cells Present H (Absent) Urine Bacteria Absent (Absent) Hyaline Casts Present H (Absent) Urine Glucose Negative (Negative) Result Diagrams: 08/01/16 02:14 08/01/16 02:14 Lab Statement: Any lab studies that have been ordered have been reviewed, and results considered in the medical decision making process. - CT A/P CT Interpretation: Positive (See Comments) - Impression: mild left hydronephrosis and minimal perinephric inflammation secondary to a 3 mm distal UVJ stone. CT Interpretation Completed By: Radiologist - imaging shirt ironer Re-Evaluation - Re-Evaluation First Eval Re-Evaluation Time: 03:38 Change: Improved Comment: Pt pain resolved. Pt informed of results of her imaging study. Second Eval Re-Evaluation Time: 04:39 Change: Improved Comment: Pt has a slight dull ache, she is agreeable to be discharged Abdominal Pain Fem Course/Dx - Course Course Of Treatment: Brittany Villegas is a 61 yo female presenting to [facility] with intermittent 9/10 left sided abdominal and left flank pain since [address] A/P showed a 3mm distal UVJ stone. After clinical examination, review of her CT A/P (see documentation) and review of her lab work, she will be discharged home with appropriate instructions. PAIN IMPROVED IN THE ED. PATIENT WISHES TO GO HOME, DISCHARGE HOME STABLE. - Diagnoses Differential Diagnosis: Positive: Other - renal calculi Provider Diagnoses: Kidney stone on left side Discharge - Discharge Plan Condition: Stable Disposition: HOME Patient Education Materials: Kidney Stones (ED) Referrals: Neetu Zurita DO [Primary Care Provider] - Wilfredo Bailey MD [Medical Doctor] - Hamilton Simons MD [Medical Doctor] - [facility] [Provider Group] Additional Instructions: FOLLOW UP WITH UROLOGY. RETURN TO THE EMERGENCY DEPARTMENT FOR ANY WORSENING OF YOUR CONDITION; PAIN, FEVER, VOMITING, YOU FEEL ILL OR QUESTIONS OR CONCERNS. The documentation as recorded by the sergei garza Timothy accurately reflects the service I personally performed and the decisions made by me, Tip Bal MD.
[2016-08-01 04:54] VITALS: BP 140/74
--- NOTE | 2016-08-01 07:56 | RAD ---
CLINICAL HISTORY: Left flank pain. Relevant surgical history includes cholecystectomy, hysterectomy and Ramses fundoplication. COMPARISON: Similar CT examination dated July 31, 2007 TECHNIQUE: Noncontrast CT examination of the abdomen and pelvis from the lung bases through the initial tuberosities. FINDINGS: VISUALIZED LUNG BASES: The visualized lung bases are grossly clear. There is no pleural effusion. ABDOMEN AND PELVIS: Evaluation of the solid organs and vasculature is limited without intravenous contrast. The liver, spleen, pancreas and adrenal glands are grossly normal in appearance. The gallbladder is surgically absent. The right kidney is normal in appearance without focal mass, calcification or signs of hydronephrosis. There is mild to moderate left-sided hydroureteronephrosis. At the distal left ureter there is a calcification (axial image 135 and coronal image 45) measuring 4 mm. No calcifications are seen in the urinary bladder. The small and large bowel are not distended. There is no gross retroperitoneal or mesenteric lymphadenopathy. The uterus is surgically absent. The abdominal aorta and iliac arteries are normal in course and diameter. Degenerative changes include multilevel loss of intervertebral disc height involving the lower thoracic and lumbar spine.There are no sinister bone lesions. IMPRESSION: 1. 4 mm calcification in the distal left ureter with ipsilateral mild/moderate hydroureter nephrosis. 2. Chronic, degenerative and iatrogenic findings described in the body of the report unlikely to be related to the patient's current presentation.
== END 2016-08-01 04:53 | disposition home or self-care (01) ==
LOC: ED 01:53
DX: N20.0 Calculus of kidney (principal); R10.84 Generalized abdominal pain; R11.0 Nausea; Z87.891 Personal history of nicotine dependence
CPT/HCPCS: 36415; 74176; 80053; 81003; 81015; 83605; 83690; 85025; 85610; 85730; 86140; 87077; 87086; 96374; 96375; 99282; J1170; J1885; J2405